=== PATIENT | male | born 1945 | race Caucasian/White ===

== ENCOUNTER 2017-07-24 05:29 | Emergency (ER) | payer BC, MEDICARE ==
[2017-07-24] MEDS: NITROGLYCERIN 0.4MG SL TABLET #25 BTL SL PRN ×3 (05:44→05:57)
[2017-07-24] MEDS ORDERED: ASPIRIN 81 MG CHEWABLE TABLET PO ONE ×2 (05:46)
[2017-07-24] MEDS ORDERED: NITROGLYCERIN 0.4MG SL TABLET #25 BTL SL PRN (05:46)
[2017-07-24] MEDS ORDERED: HEPARIN SODIUM 1000 UNIT/1 ML 10ML VIAL IVP ONE (05:48)
--- NOTE | 2017-07-24 05:58 | Emergency Department Record ---
History of Present Illness - General Chief Complaint: Chest Pain Stated Complaint: HEART ATTACK SYMTOMS Time Seen by Provider: 07/24/17 05:46 Source: Patient Mode of Arrival: Wheelchair Limitations: No limitations - History of Present Illness Initial Comments: pt developed l arm pain aboutan hour ago. he then developed cp . he had 2 stents placed 10-12yrs ago. he had it done at [facility]. 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 pain 01/05. MD Complaint: Chest pain Onset/Timin -: Hour(s) Onset: Awoke with symptoms, During rest Pain Location: Left chest Pain Radiation: LUE Severity: Moderate Severity scale (1-10): 6 Quality: Aching Consistency: Constant Improves With: Nothing Worsens With: Nothing Treatments Prior to Arrival: None - Related Data Home Medications Medication Instructions Recorded Confirmed Last Taken Aspirin 81 mg PO DAILY 07/24/17 07/24/17 Unknown Cholecalciferol (Vitamin D3) 1 tab PO ASDIR 07/24/17 07/24/17 Unknown [Vitamin D3] Glucosamine HCl 500 mg PO DAILY 07/24/17 07/24/17 Unknown Rosuvastatin Calcium [Crestor] 20 mg PO DAILY 07/24/17 07/24/17 Unknown Allergies Allergy/AdvReac Type Severity Reaction Status Date / Time No Known Drug Allergies Allergy Verified 07/24/17 05:37 Travel Screening - Travel/Exposure Within Last 30 Days Have you traveled within the last 30 days?: No - Travel/Exposure Within Last Year Have you traveled outside the [place] in the last year?: No - Additonal Travel Details Have you been exposed to anyone with a communicable illness?: No - Travel Symptoms Symptom Screening: None Review of Systems Reviewed: No additional complaints except as noted below Constitutional: Reports: As per HPI. Denies: Chills, Fever, Malaise, Night sweats, Weakness, Weight change Eyes: Reports: As per HPI. Denies: Eye discharge, Eye pain, Photophobia, Vision change ENT: Reports: As per HPI. Denies: Congestion, Dental pain, Ear pain, Epistaxis , Hearing loss, Throat pain Respiratory: Reports: As per HPI. Denies: Cough, Dyspnea, Hemoptysis, Stridor, Wheezes Cardiovascular: Reports: As per HPI. Denies: Arrhythmia, Chest pain, Dyspnea on exertion, Edema, Murmurs, Orthopnea, Palpitations, Paroxysmal nocturnal dyspnea, Rheumatic Fever, Syncope Endocrine: Reports: As per HPI. Denies: Fatigue, Heat or cold intolerance, Polydipsia, Polyuria Gastrointestinal: Reports: As per HPI. Denies: Abdominal pain, Constipation, Diarrhea, Hematemesis, Hematochezia, Melena, Nausea, Vomiting Genitourinary: Reports: As per HPI. Denies: Dysuria, Frequency, Hematuria, Incontinence, Retention, Testicular pain, Testicular mass, Urgency Musculoskeletal: Reports: As per HPI. Denies: Arthralgia, Back pain, Gout, Joint swelling, Myalgia, Neck pain Skin: Reports: As per HPI. Denies: Bruising, Change in color, Change in hair/ nails, Lesions, Pruritus, Rash Neurological: Reports: As per HPI. Denies: Abnormal gait, Confusion, Headache, Numbness, Paresthesias, Seizure, Tingling, Tremors, Vertigo, Weakness Psychiatric: Reports: As per HPI. Denies: Anxiety, Auditory hallucinations, Depression, Homicidal thoughts, Suicidal thoughts, Visual hallucinations Hematological/Lymphatic: Reports: As per HPI. Denies: Anemia, Blood Clots, Easy bleeding, Easy bruising, Swollen glands Past Medical History - SOCIAL HISTORY Smoking Status: Former smoker Alcohol Use: None Drug Use: None - RESPIRATORY Hx Respiratory Disorders: No - CARDIOVASCULAR Hx Cardio Disorders: No Comment:: high cholesterol - NEURO Hx Neuro Disorders: No - GI Hx GI Disorders: No - Hx Genitourinary Disorders: No - ENDOCRINE Hx Endocrine Disorders: Yes Hx Diabetes: Yes ("borderline") - MUSCULOSKELETAL Hx Musculoskeletal Disorders: No - PSYCH Hx Psych Problems: No - HEMATOLOGY/ONCOLOGY Hx Hematology/Oncology Disorders: No Family Medical History Any Significant Family History?: No Physical Exam - General General Appearance: Alert, Oriented x3, Cooperative, Moderate distress - Head Head exam: Normal inspection - Eye Eye exam: Normal appearance, PERRL, EOMI Pupils: Normal accommodation - ENT ENT exam: Normal exam, Mucous membranes moist, Normal external ear exam, Normal orophraynx Ear exam: Normal external inspection. negative: External canal tenderness Nasal Exam: Normal inspection. negative: Discharge, Sinus tenderness Mouth exam: Normal external inspection, Tongue normal Teeth exam: Normal inspection. negative: Dental caries Throat exam: Normal inspection. negative: Tonsillar erythema, Tonsillar exudate - Neck Neck exam: Normal inspection, Full ROM. negative: Tenderness - Respiratory Respiratory exam: Normal lung sounds bilaterally. negative: Respiratory distress - Cardiovascular Cardiovascular Exam: Normal heart sounds, Irregular rhythm, Tachycardia - GI/Abdominal GI/Abdominal exam: Soft, Normal bowel sounds. negative: Tenderness - Rectal Rectal exam: Deferred - exam: Deferred - Extremities Extremities exam: Normal inspection, Full ROM, Normal capillary refill. negative: Tenderness - Back Back exam: Reports: Normal inspection, Full ROM. Denies: Muscle spasm, Rash noted, Tenderness - Neurological Neurological exam: Alert, CN II-XII intact, Normal gait, Oriented X3 - Psychiatric Psychiatric exam: Normal affect, Normal mood - Skin Skin exam: Dry, Intact, Normal color, Warm Course Vital Signs 07/24/17 07/24/17 05:31 05:49 Temperature 98.0 F Pulse Rate 100 H Pulse Rate [ 101 H [place] ] Respiratory 24 20 Rate Blood Pressure 179/120 Blood Pressure 150/134 [Left Arm] Pulse Ox 97 95 - Reevaluation(s) Reevaluation #1: 07/24/17 05:59 d/w dr Jarvis Medical Decision Making - Lab Data Result diagrams: 07/24/17 05:35 Disposition Disposition: Transfer Clinical Impression: Acute NC, lateral wall Disposition: Acute Care Hospital Transfer Transfer To: [facility] Reason For Transfer: acute STEMI Accepting Physician: dr Jarvis Time Discussed w/Accepting Physician: 05:58 Quality - Quality Measures Quality Measures: N/A - Blood Pressure Screening Does Patient Have Any of the Following: Active Dx of HTN Blood Pressure Classification: Hypertensive Reading Systolic Measurement: 179 Diastolic Measurement: 120 Screening for High Blood Pressure: Patient Exclusion, Hx of HTN [[id number]]
[2017-07-24] MEDS ORDERED: HEPARIN SODIUM/D5W 25,000 UNITS/500 ML BAG IV SCH (06:00)
[2017-07-24 06:03] LABS: BLOOD UREA NITROGEN 17 mg/dL (8-23); CREATININE 0.9 mg/dL (0.7-1.2); EST GLOMERULAR FILTRATION RATE > 60 mL/min
[2017-07-24 06:06] LABS: GLUCOSE,RANDOM 137 mg/dL (74-109)
[2017-07-24 06:09] LABS: CREATINE PHOSPHOKINASE 108 U/L (39-308)
[2017-07-24 06:11] LABS: CKMB 4.6 ng/mL (<6.73)
[2017-07-24 06:18] LABS: BASO % 0.8 % (0-6); EOS % 2.8 % (0-6); GRAN % 54.6 % (47-80); HEMATOCRIT 47.4 % (42.0-52.0); HEMOGLOBIN 16.2 gm/dl (14.0-18.0); LYMPH % 29.7 % (16-45); MEAN CORPUSCULAR HEMOGLOBIN 32.8 pg (27-33); MEAN CORPUSCULAR HGB CONC 34.2 g/dl (32-36); MEAN PLATELET VOLUME 12.4 fl (7.4-10.4); MONO % 12.1 % (0-9); PLATELET COUNT 222 K/uL (130-400); RED BLOOD COUNT 4.94 M/uL (4.40-5.70); WHITE BLOOD COUNT W/O DIFF 10.5 K/uL (4.2-12.2)
--- NOTE | 2017-07-25 07:13 | RADIOLOGY REPORT ---
EXAM: AP CHEST HISTORY: DIFFICULTY IN BREATHING. TECHNIQUE: A single AP view of the chest was performed. FINDINGS: There is mild cardiomegaly. Mild pulmonary vasculature congestion. No infiltrate or pleural effusion. The osseous structures are normal. IMPRESSION: CARDIOMEGALY WITH MILD CONGESTION. JOB NUMBER: [id number] MTDD
== END 2017-07-24 06:15 | disposition short-term general hospital (02) ==
LOC: ER 05:29
DX: I21.29 ST elevation (STEMI) myocardial infarction involving other sites (principal); R06.00 Dyspnea, unspecified; Z87.891 Personal history of nicotine dependence; I25.2 Old myocardial infarction
CPT/HCPCS: 71010; 80048; 82550; 82553; 84484; 85025; 85730; 93005; 93010; 96365; 96375; 99285